=== PATIENT | male | born 1985 | race Caucasian/White ===

== ENCOUNTER 2018-01-04 17:10 | Emergency (ER) | payer BC ==
--- NOTE | 2018-01-07 08:27 | EDM.PDOC ---
Scribed by Porsche Berkowitz 01/04/18 [id number] for William Hardy MD ED HPI GENERAL MEDICAL PROBLEM - General Chief Complaint: Lower Extremity Injury/Pain Stated Complaint: ACHILLIES Time Seen by Provider: 01/04/18 17:20 Source of Information: Reports: Patient, RN, RN Notes Reviewed History Limitations: Reports: No Limitations - History of Present Illness INITIAL COMMENTS - FREE TEXT/NARRATIVE: Patient presents to ER with complaint that he was running at a basketball game and felt a pop in his left heel and now he cannot walk. Patient states he feels a burning pain in his Achilles tendon area just above its insertion at heel. Denies any other injury. Onset: Today Duration: Constant Location: Reports: Lower Extremity, Left Quality: Reports: Burning Severity: Moderate Improves with: Reports: Immobilization Worsens with: Reports: Movement Associated Symptoms: Reports: No Other Symptoms Left Ankle Pain Score (Numeric/FACES): 6 - Related Data Allergies Allergy/AdvReac Type Severity Reaction Status Date / Time amoxicillin Allergy Rash Verified 01/04/18 17:36 Penicillins Allergy Rash Verified 01/04/18 17:36 Home Meds: Home Meds . [No Known Home Meds] 01/04/18 [History] Past Medical History - Past Health History Medical/Surgical History: Denies Medical/Surgical History Social & Family History - Family History Family Medical History: Noncontributory - Tobacco Use Smoking Status *Q: Never Smoker - Living Situation & Occupation Occupation: Employed Review of Systems - Review of Systems Review Of Systems: ROS reveals no pertinent complaints other than HPI. ED EXAM, GENERAL - Physical Exam Exam: See Below Exam Limited By: No Limitations General Appearance: Alert, WD/WN, No Apparent Distress Head: Atraumatic, Normocephalic Neck: Full Range of Motion Respiratory/Chest: No Respiratory Distress Cardiovascular: Normal Peripheral Pulses Extremities: No Pedal Edema, Normal Capillary Refill, Leg Pain (tender to palpation at distal left lower leg just proximal to achilles insertion w/mild soft tissus swelling, a palpable indent/step off of the achilles tendon, but no visible bruising, skin is intact.), Other (painful but near full ROM of left ankle). No: Joint Swelling Neurological: Alert, Oriented, CN II-XII Intact, Normal Cognition, Normal Gait, Normal Reflexes, No Motor/Sensory Deficits Psychiatric: Normal Affect, Normal Mood Skin Exam: Warm, Dry, Intact, Normal Color, No Rash ED TRAUMA EXTREMITY PROCEDURES - Splinting Left Lower Extremity Splint Site: left ankle Pre-Procedure NV Status: Normal Post-Procedure NV Status: Normal Splint Material: Boot Orthotic Applied & Form Fitted By: Nurse Provider Post-Splint Application NV Check: NV Status Normal, Good Position Complications: No Course - Vital Signs Last Recorded V/S: Last Vital Signs Temp Pulse 113 H 01/04/18 17:36 Resp 20 01/04/18 17:36 BP 125/78 01/04/18 17:36 Pulse Ox 98 01/04/18 17:36 - Radiology Interpretation Free Text/Narrative:: Left ankle x-ray: No acute fracture. Follow up imaginag recommended in 7-14 days if clinical concern for fracture persists. Mild thickening of the distal Achilles tendon, this could suggest partial injury or tendinopathy. Further evaluation with MRI. See rad report. Departure - Departure Time of Disposition: 18:14 Disposition: Home, Self-Care 01 Condition: Good Clinical Impression: Achilles tendon injury Qualifiers: Encounter type: initial encounter Laterality: left Qualified Code(s): S86.002A - Unspecified injury of left Achilles tendon, initial encounter - Discharge Information Instructions: Achilles Tendon Rupture, Partial (Incomplete) Achilles Tendon Rupture Forms: ED Department Discharge Additional Instructions: No weight bearing on left foot. Use crutches and splint. May remove splint to shower. Rest, ice and elevate the left ankle to reduce pain and swelling. Call [facility] Saturday morning to schedule an ER follow up appointment for evaluation of an Achilles tendon injury. X-ray image was sent to [facility] viewing system. Use Ibuprofen (Advil/Ibuprofen) 200m tablets every 6 hours as needed for pain. I have read and agree with the documentation that has been completed regarding this visit. By signing this record, I attest that the documentation was completed in my physical presence and is an accurate record of the encounter.
== END 2018-01-04 18:40 | disposition home or self-care (01) ==
LOC: DL.ED 17:10
DX: S86.002A Unspecified injury of left Achilles tendon, initial encounter (principal); X50.9XXA Other and unspecified overexertion or strenuous movements or postures, initial encounter; Y93.67 Activity, basketball; Z88.0 Allergy status to penicillin; Z88.1 Allergy status to other antibiotic agents
CPT/HCPCS: 73610-LT; 99284